=== PATIENT | male | born 1975 | race Caucasian/White ===

== ENCOUNTER 2024-10-13 06:18 | Day surgery (SDC) | payer OTHER, SELFPAY | END 2024-10-13 14:12 | disposition home or self-care (01) | LOC: GI 06:18 | PROVIDERS: ATTENDING PHYSICIAN Internal Medicine Gastroenterology | DX: Z12.11 Encounter for screening for malignant neoplasm of colon (principal); K64.8 Other hemorrhoids; K57.30 Diverticulosis of large intestine without perforation or abscess without bleeding; D12.1 Benign neoplasm of appendix; K22.70 Barrett's esophagus without dysplasia | CPT/HCPCS: 45385; 43239; 88305 ==

== ENCOUNTER 2025-06-26 08:58 | Emergency (ER) | payer OTHER, SELFPAY ==
[2025-06-26 09:00] VITALS: BP 167/113
[2025-06-26 09:08] VITALS: BP 171/109
--- NOTE | 2025-06-26 09:17 | ED.GENMED ---
History of Present Illness
General
Chief Complaint: Fainting Sensation
Source: patient
Exam Limitations: none
Time Seen by Provider: 06/26/25 09:05
History of Present Illness
History of Present Illness:
49-year-old male with history of hypertension and reflux on lisinopril and Prilosec presents to the onset of chest pressure with left arm tingling this morning at 7 AM when he woke up. The pressure has been constant since he woke up. He also
admits to drinking large amount of alcohol yesterday. He estimates about 20 beers he drinks. He has been drinking regularly due to underlying anxiety. He is concerned about his alcohol consumption recently. The pain that he has in his chest does
not radiate to the back. No vomiting. No leg swelling or calf pain. No recent travel or surgery. Pain is not pleuritic. No other complaints
Past History
Past History
ED Past Medical History: Asthma, GERD and HTN
ED Past Surgical History: None
Social History
Tobacco: Smoker
Alcohol: Occasional
Personal:
Living: with family
Employment: Employed
Phy Exam
Physical Exam
Physical Exam:
General: Well-appearing male no acute respiratory distress
HEENT: Normal cephalic atraumatic
Heart: Regular rate and rhythm
Lungs: Clear no wheeze
Abdomen is soft nontender nondistended extremities: No cyanosis or edema
Course
Orders/Labs/Results
Orders:
Orders
06/26/25 09:03
Electrocardiogram (*1) Urgent
Reason for Study: Chest Pain
EKG- Treatment ONCE
06/26/25 09:16
0.9% Sodium Chloride 1000 ml [Nss] 1,000 ml IV BOLUS
Famotidine [Pepcid] 20 mg IV NOW STA
CR Chest - 2 Views Urgent
Comment:
Reason For Exam: chest pain
06/26/25 09:24
Complete Blood Count/With Diff Urgent
Comprehensive Metabolic Panel Urgent
Lipase Urgent
Troponin I Urgent
06/26/25 11:43
Troponin I Urgent
Abnormal Lab Results
06/26/25
09:24
WBC 3.6 L 10^3/uL
(4.8-10.8)
Absolute Lymphs (auto) 1.1 L 10^3/uL
(1.2-3.4)
Monocytes % 12.6 H %
(1.7-9.3)
BUN 6 L mg/dl
(9-20)
Creatinine 0.6 L mg/dL
(0.7-1.3)
Glucose 100 H mg/dl
(70-99)
AST 91 H U/L
(17-59)
ALT 111 H U/L
(0-50)
06/26/25 09:24
06/26/25 09:24
Vital Signs
Initial and Last Documented VS:
Initial Vital Signs
Temp Pulse Resp BP Pulse Ox
97.5 F 91 16 167/113 98
06/26/25 09:00 06/26/25 09:00 06/26/25 09:00 06/26/25 09:00 06/26/25 09:00
Last Documented Vital Signs
Temp Pulse Resp BP Pulse Ox
97.5 F 95 13 164/111 97
06/26/25 09:00 06/26/25 11:46 06/26/25 11:46 06/26/25 11:46 06/26/25 11:46
MDM/Problems Addressed
Differential Diagnosis Includes:
Chest pressure with left arm tingling. Consider ACS versus reflux versus anxiety versus pancreatitis. Vital signs are stable other than slightly elevated blood pressure.
Patient admits to having underlying alcohol abuse problem. Will contact [facility] for outpatient resources. EKG through triage shows sinus rhythm without ischemic changes. Will check troponin x 2 hydrate and give Pepcid.
*Pulse Oximetry
SaO2: 98
Oxygen Mode of Delivery: Room air
Patient hypoxic: no
*Critical Care Note
Total Time (30-74mins, 75-104mins- exclusive of procedures): Not Applicable
Update Note
Update Note:
Initial and repeat troponin both undetectable chest x-ray clear patient feeling better after fluids and Pepcid. Patient did speak with [facility] and they will continue to follow him. No indication for admission. Stable for discharge process symptoms
today were likely related to reflux given alcohol ingestion with spicy food yesterday
ED Attending Note
-
Portions of this chart may have been created with voice recognition software.� Occasional wrong word or��sound alike� substitutions may have occurred due to the inherent limitations of voice recognition software.
Discharge Plan
Departure
Patient Disposition: Home (Routine Discharge)
Date of Disposition: 06/26/25
Time of Disposition: 12:35
Patient with high blood pressure during this ER visit?: No
Discharge Problem:
Chest pain
Instructions: Acid reflux and GERD in adults
Prescriptions:
No Action
Omeprazole
1 tab PO DAILY
Patient Comments:
unsure of mg
Referrals:
Anthony Hays MD [Family Provider, Internal Medicine]
Activity Restrictions/Additional Instructions:
Limit alcohol. Continue with your antacid medication. Return if worse otherwise follow-up with your doctor
Interventions
Interventions:
*Risk Screen - Suicide Last Done: 06/26/25 09:00
*General Assessment Last Done: 06/26/25 09:28
*Neglect/Abuse Screening Last Done: 06/26/25 09:00
ED- Cardiac Assessment Last Done: 06/26/25 09:28
ED- Neurological Assessment Last Done: 06/26/25 09:28
Discharge Date and Time
Print Language: SWEDISH
[2025-06-26] MEDS: PEPCID 20 MG IV (09:24)
[2025-06-26] MEDS: NSS 1000 IV (09:24)
[2025-06-26 09:28] VITALS: BMI 31.1
[2025-06-26 09:37] LABS: Hematocrit 43.3 % (39.0-52.0); Hemoglobin 15.4 g/dL (13.0-18.0); Mean Corp Hgb Conc. 35.6 g/dL (33.0-37.0); Mean Corpuscular Volume 85.9 fL (80.0-94.0); Nucleated Red Blood Cells % 0 % (-); Platelet Count 219 10^3/uL (130-400); Red Cell Dist. Width 12.0 % (11.5-14.5)
[2025-06-26 09:52] LABS: ALT (SGPT) 111 U/L (0-50); AST (SGOT) 91 U/L (17-59); Albumin 4.3 g/dl (3.5-5.0); Alkaline Phosphatase 59 U/L (38-126); Blood Urea Nitrogen 6 mg/dl (9-20); Calcium 9.2 mg/dl (8.4-10.2); Carbon Dioxide 26 mmol/L (22-30); Chloride 101 mmol/L (98-107); Estimated Creatinine Clearance > 125 ml/min; Glucose 100 mg/dl (70-99); Lipase 118 U/L (23-300); Potassium 4.2 mmol/L (3.5-5.1); Sodium 137 mmol/L (135-145); Total Protein 7.9 g/dl (6.3-8.2); eGFR > 60.00
[2025-06-26 10:04] LABS: Troponin I < 0.012 ng/ml
[2025-06-26 11:46] VITALS: BP 164/111
[2025-06-26 12:15] LABS: Troponin I < 0.012 ng/ml
== END 2025-06-26 12:53 | disposition home or self-care (01) ==
LOC: EMR 08:58
PROVIDERS: Physician Assistant; EMERGENCY PHYSICIAN Emergency Medicine; FAMILY PHYSICIAN Internal Medicine
DX: R07.89 Other chest pain (principal); I10 Essential (primary) hypertension; J45.909 Unspecified asthma, uncomplicated; K21.9 Gastro-esophageal reflux disease without esophagitis; F10.10 Alcohol abuse, uncomplicated; F17.200 Nicotine dependence, unspecified, uncomplicated; Z79.899 Other long term (current) drug therapy
CPT/HCPCS: 99285; 96374; 96361; 71046; 80053; 83690; 84484; 85025; 93005